=== PATIENT | male | born 1990 | race Caucasian/White ===

== ENCOUNTER 2017-08-22 21:20 | Emergency (ER) | payer OTHER ==
[~2017-08-22] VITALS: Ht 180.3 cm; Wt 109.8 kg
[2017-08-22 21:26] VITALS: Ht 180.3 cm; Wt 109.8 kg
[2017-08-22 22:28] VITALS: BP 128/68
== END 2017-08-22 22:28 | disposition home or self-care (01) ==
LOC: ED 21:20
DX: L03.116 Cellulitis of left lower limb (principal); Z88.1 Allergy status to other antibiotic agents; Z88.8 Allergy status to other drugs, medicaments and biological substances
CPT/HCPCS: Q0092